=== PATIENT | female | born 1930 | race Caucasian/White ===

== ENCOUNTER → 2016-08-28 | Outpatient (CLI) | payer OTHER, MEDICAID ==
[2016-08-28 08:46] LABS: CREATININE 0.99 mg/dL (0.55-1.02)
--- NOTE | 2016-08-28 10:21 | CT ---
HISTORY: Left rib pain Study: CT chest without contrast Comparison: None Technique: Axial non contrast images with coronal and sagittal reformats. Dose reduction procedures were used with MA/kv adjusted for body size. Findings: Examination of the mediastinum demonstrated no definite evidence for mediastinal masses, enlarged ly mphadenopathy, or enlarged hilar adenopathy. No pleural effusions are identified. No chest wall or a xillary abnormality is identified with the exception of bilateral calcified pleural plaques suggesti ng the possibility of prior asbestos exposure. Those portions of the upper abdominal organs visualiz ed were within normal limits to the limitations of an unenhanced examination with the exception of f atty infiltration of the liver. The ribs are intact demonstrating no fracture, lytic, or blastic les ion. Examination of the lung loyola demonstrated no significant nodules, alveolar infiltrate, area o f consolidation, masses, peribronchial thickening, or bronchiectasis. Minimal subsegmental atelectas is is present in the lung bases. IMPRESSION: Lungs clear Bilateral small calcified pleural plaques suggestive of the possibility of prior asbestos exposure Fatty infiltration of the liver Intact ribs Reported By:
== END ==
LOC: RAD 08:16
PROVIDERS: ATTEND Internal Medicine
DX: R93.8 Abnormal findings on diagnostic imaging of other specified body structures (principal)
CPT/HCPCS: 36415; 71250; 82565; 84520

== ENCOUNTER 2016-09-30 15:49 | Emergency (ER) | payer OTHER, MEDICAID ==
[2016-09-30 15:55] VITALS: BMI 27.6
[2016-09-30] MEDS ORDERED: CATAPRES TAB 0.1 MG PO ONE (16:32)
[2016-09-30] MEDS ORDERED: CATAPRES TAB 0.1 MG ONE (16:32)
--- NOTE | 2016-09-30 16:32 | DR.GENAD ---
HPI - PCP Primary Care Physician: soheila - HPI Comment HPI Comment: RECENTLY BP ALTAF BUT MUCH HIGHER TODAY. SLIGHT HEADACHE AND DIZZINESS. POPPED LEFT KNEE 5 DAYS AGO AND CONTINUES TO HURT. LEGS ARE HURTING ESPECIALLY IN THE CALF AREA FOR FEW DAYS NOW. SHE IS CONCERN IF SHE HAS DVT. DENIES SOB BUT HAVE SLIGHT CHEST DISCOMFORT. NO FEVER. - Complaint/Symptoms Chief Complaint Doctors Comments: ELEVATED BLOOD PRESSURE NOTED RECENTLY BUT WORSE TODAY. LOWER EXTREMITY PAIN.LEFT KNEE POPPED 5 DAYS AGO AND HURTS. Chief Complaint:: patient stated her blood pressure has been high all day, she also stated her left knee poped 5 days ago and her and has been hurting. - Nurses notes reviewed Nurses Notes Review: Yes - Source History Provided: Patient - Mode of Arrival Mode of Arrival: Ambulatory - Timing Onset of Chief Complaint: 09/25/16 Came on: Suddenly - Duration Duration: Constant Duration: Days - Severity Severity: Moderate PMH - PMH Past Medical History: No Past Surgical History: No - Family History History of Family Medical Conditions: No - Social History Does patient currently use any type of tobacco product: No Have you used tobacco products in the last 12 months: No Type of Tobacco Use: None Does any household member use tobacco: No Alcohol Use: None Do you use any recreational Drugs:: No Lives With: Family Lives Where: Home - infectious screening In the last 2 months have you had wt loss of >10#?: NO Have you had fever, night sweats or hemotysis?: No Have you traveled outside the country in the last 6 months?: No Isolation: Standard ROS - Review of Systems Constitutional: No Symptoms Reported. negative: Chills, Fever Eyes: No Symptoms Reported. negative: Eye Pain, Discharge ENTM: No Symptoms Reported. negative: Ear Pain, Nose Discharge, Nose Congestion , Throat Pain Respiratoy: negative: Productive Cough, Non-Productive Cough, Short of Breath, Wheezing, Hemoptysis Cardiovascular: Chest Pain, Other. negative: Edema Gastrointestinal/Abdominal: No Symptoms Reported. negative: Nausea, Vomiting Genitourinary: No Symptoms Reported. negative: Dysuria, Frequency, Hematuria Neurological: Headache, Dizziness Musculoskeletal: Muscle Pain, Right, Left, Leg, Knee Integumentary: No Symptoms Reported Hematologic/Lymphatic: Easy Bruising Endocrine: No Symptoms Reported All Other Systems: Reviewed and Negative PE - Vital Signs Vitals: Temperature 98.6 F Pulse Rate [Left Brachial] 53 Pulse Rate 66 Respiratory Rate 16 Blood Pressure [Left Arm] 120/68 Blood Pressure 209/100 O2 Sat by Pulse Oximetry 99 - General Limitations: No Limitations General Appearance: Alert - Head Head Exam: Normal Inspection - Eyes Eye exam: Normal Appearance - ENT ENT Exam: Normal External Ear Exam External Ear Exam: Normal External Inspection TM/Canal Exam: Bilateral Normal Mouth Exam: Normal Inspection Throat Exam: Normal Inspection - Neck Neck Exam: Trachea Midline - Chest Chest Inspection: Symmetric Chest Wall Rise - Respiratory Respiratory Exam: Normal Lung Sounds Bilat Respiratory Exam: Bilateral Clear to Auscultation - Cardiovascular Cardiovascular Exam: Normal Rhythm, Bradycardia, Normal Heart Sounds - Abdominal Exam Abdominal Exam: Normal Bowel Sounds, Soft. negative: Tenderness - Extremities Extremities Exam: Full ROM, Tenderness (SLIGHT DISCOMFORT ON PALPATION), Calf Tenderness. negative: Edema, Joint Swelling - Back Back Exam: Other (SLIGHT TENSE MUSCLES LEG.) - Neurologic Neurological Exam: Alert, Oriented X3 - Psychiatric Psychiatric Exam: Normal Affect, Normal Mood - Skin Skin Exam: Normal Color MDM - Additional Information Additional Information Obtained From: Family - Differential Diagnosis Differential Diagnosis: LOWER EXTREMITY PAIN, MUSCLE SPASM, DVT, ELECTROLYTE IMBALANCE. Course - Treatment Treatment: SEE ORDERS. - Education/Counseling Education/Counseling: Patient, Family, Education Educated On: Diagnosis, Needs for Follow Up ROR - Labs Reviewed Laboratory Results Reviewed?: Yes Result Diagrams: 09/30/16 16:41 09/30/16 16:41 Laboratory: WBC 8.3 X10^3/uL (3.6-10.0) 09/30/16 16:41 RBC 4.89 X10^6/uL (3.5-5.4) 09/30/16 16:41 Hgb 14.7 g/dL (12.0-16.0) 09/30/16 16:41 Hct 42.6 % (36.0-47.0) 09/30/16 16:41 MCV 87.1 fL (80.0-100.0) 09/30/16 16:41 MCH 30.1 pg (27.0-34.0) 09/30/16 16:41 MCHC 34.5 g/dL (33.0-35.0) 09/30/16 16:41 RDW 14.0 % (11.6-16.5) 09/30/16 16:41 Plt Count 234 X10^3/uL (150.0-450.0) 09/30/16 16:41 MPV 8.3 fL (7.4-11.0) 09/30/16 16:41 Neut % 51.7 % (42.0-75.0) 09/30/16 16:41 Lymph % 38.2 % (21.0-51.0) 09/30/16 16:41 [place] % 7.3 % (0.0-13.0) 09/30/16 16:41 Eos % 2.0 % (0.9-2.9) 09/30/16 16:41 Baso % 0.8 % (0.2-1.0) 09/30/16 16:41 Neut # 4.3 x10^3/uL (2.2-4.8) 09/30/16 16:41 Lymph # 3.2 X10^3/uL (1.3-2.9) H 09/30/16 16:41 [place] # 0.6 x10^3/uL (0.3-0.8) 09/30/16 16:41 Eos # 0.2 x10^3/uL (0.0-0.2) 09/30/16 16:41 Baso # 0.1 X10^3/uL (0.0-0.1) 09/30/16 16:41 Absolute Nucleated RBC 0.1 /100WBC 09/30/16 16:41 D-Dimer 415 ng/mL (0-400) H* 09/30/16 16:41 Sodium 142 mmol/L (136-145) 09/30/16 16:41 Corrected Sodium TNP 09/30/16 16:41 Potassium 4.1 mmol/L (3.5-5.1) 09/30/16 16:41 Chloride 104 mmol/L (98-107) 09/30/16 16:41 Carbon Dioxide 27.3 mmol/L (21-32) 09/30/16 16:41 BUN 12 mg/dL (7-18) 09/30/16 16:41 Creatinine 0.89 mg/dL (0.55-1.02) 09/30/16 16:41 Est GFR (MDRD) Af Amer > 60 (>60) 09/30/16 16:41 Est GFR (MDRD) Non-Af > 60 (>60) 09/30/16 16:41 Glucose 91 mg/dL (65-99) 09/30/16 16:41 Calcium 9.2 mg/dL (8.5-10.1) 09/30/16 16:41 Corrected Calcium TNP 09/30/16 16:41 Total Bilirubin 0.40 mg/dL (0.2-1.0) 09/30/16 16:41 AST 23 Units/L (15-37) 09/30/16 16:41 ALT 28 Units/L (12-78) 09/30/16 16:41 Alkaline Phosphatase 81 Units/L (46-116) 09/30/16 16:41 Creatine Kinase 104 Units/L (26-192) 09/30/16 16:41 CK-MB (CK-2) 2.0 ng/mL (0-4.0) 09/30/16 16:41 CK/CKMB % Calc 1.9 % (<4) 09/30/16 16:41 Troponin I < 0.02 ng/mL (0-1.5) 09/30/16 16:41 Total Protein 7.6 g/dL (6.4-8.2) 09/30/16 16:41 Albumin 3.9 g/dL (3.4-5.0) 09/30/16 16:41 Globulin 3.7 g/dL (2.5-4.5) 09/30/16 16:41 Albumin/Globulin Ratio 1.1 Ratio (1.1-2.1) 09/30/16 16:41 - XRAY XRAY Interpreted by: Radiologist XRAY Findings: REPORT DISCUSS WITH PATIENT AND HER SON. - EKG Rhythm: SB (EKG NOTED.) - Diagnosis Discharge Problem: Hypertension, Leg pain - Discharge Plan Disposition: 01 HOME, SELF-CARE Condition: Stable Prescriptions: Clonidine HCl 0.1 mg PO DAILY #30 tablet Ibuprofen [MOTRIN TAB 600 MG *] 600 mg PO BID PRN #14 tab PRN Reason: Pain/Inflammation - Follow ups/Referrals Follow ups/Referrals: Armin Christensen [Primary Care Provider] - 2 days - Instructions Instructions: Hypertension, Leg Cramps, Knee Sprain, [id number] Additional Instructions: RETURN TO ED IF WORSE.
[2016-09-30 16:56] LABS: BASOPHILS # (AUTO) 0.1 X10^3/uL (0.0-0.1); BASOPHILS % (AUTO) 0.8 % (0.2-1.0); EOSINOPHILS # (AUTO) 0.2 x10^3/uL (0.0-0.2); HEMATOCRIT 42.6 % (36.0-47.0); HEMOGLOBIN 14.7 g/dL (12.0-16.0); LYMPHOCYTES # (AUTO) 3.2 X10^3/uL (1.3-2.9); LYMPHOCYTES % (AUTO) 38.2 % (21.0-51.0); MEAN CORPUSCULAR HEMOGLOBIN 30.1 pg (27.0-34.0); MEAN CORPUSCULAR HGB CONC 34.5 g/dL (33.0-35.0); MEAN CORPUSCULAR VOLUME 87.1 fL (80.0-100.0); MEAN PLATELET VOLUME 8.3 fL (7.4-11.0); MONOCYTES # (AUTO) 0.6 x10^3/uL (0.3-0.8); MONOCYTES % (AUTO) 7.3 % (0.0-13.0); NEUTROPHILS # (AUTO) 4.3 x10^3/uL (2.2-4.8); NEUTROPHILS % (AUTO) 51.7 % (42.0-75.0); PLATELET COUNT 234 X10^3/uL (150.0-450.0); RED BLOOD COUNT 4.89 X10^6/uL (3.5-5.4); WHITE BLOOD COUNT 8.3 X10^3/uL (3.6-10.0)
--- NOTE | 2016-09-30 17:14 | RAD ---
HISTORY: Chest pain. Study: Portable chest. Comparison: Chest x-ray dated March 10, 2013. Findings: The trachea is midline. The cardiac silhouette is unchanged. Question of bronchiectasis within the right lower lobe. The lungs are clear without focal infiltrate or effusion. The bony thorax is unr emarkable. IMPRESSION: 1. No acute cardiopulmonary disease. Reported By:
[2016-09-30 17:23] LABS: D DIMER 415 ng/mL (0-400)
[2016-09-30 17:55] VITALS: BP 120/68
[2016-09-30 18:36] LABS: ALANINE AMINOTRANSFERASE 28 Units/L (12-78); ALBUMIN 3.9 g/dL (3.4-5.0); ALKALINE PHOSPHATASE 81 Units/L (46-116); ASPARTATE AMINO TRANSFERASE 23 Units/L (15-37); BLOOD UREA NITROGEN 12 mg/dL (7-18); CALCIUM 9.2 mg/dL (8.5-10.1); CARBON DIOXIDE 27.3 mmol/L (21-32); CHLORIDE 104 mmol/L (98-107); CKMB % 1.9 % (<4); CREATINE KINASE 104 Units/L (26-192); CREATININE 0.89 mg/dL (0.55-1.02); GLUCOSE 91 mg/dL (65-99); SODIUM 142 mmol/L (136-145); TOTAL PROTEIN 7.6 g/dL (6.4-8.2); TROPONIN I < 0.02 ng/mL (0-1.5); eGFR BLACK RACES > 60 (>60); eGFR NON BLACK RACES > 60 (>60)
--- NOTE | 2016-09-30 18:56 | VAS ---
HISTORY: Bilateral lower extremity pain Study: Bilateral lower extremity venous Doppler Comparison: None TECHNIQUE: Multiple jamil scale and color flow Doppler images of the deep venous system were obtaine d of the right and left lower extremity. FINDINGS: The deep venous system of the right and left lower extremities were evaluated from the level of the common femoral vein through the popliteal vein. Normal color flow and augmentation can be observed. In addition, normal compression is seen throughout the deep venous system. IMPRESSION: 1. Negative for DVT. Reported By:
== END 2016-09-30 19:34 | disposition home or self-care (01) ==
LOC: ER 16:04
DX: I10 Essential (primary) hypertension (principal); M79.605 Pain in left leg
CPT/HCPCS: 36415; 71010; 80053; 82550; 82553; 84484; 85025; 85378; 93005; 93010; 93970; 99283

== ENCOUNTER 2018-09-29 20:01 | Observation (INO) ==
[2018-09-29 20:28] VITALS: BMI 24.7
--- NOTE | 2018-09-29 22:02 | DR.NAUSEAF ---
HPI Time Seen Time Seen by Provider: 09/29/18 21:55 Primary Care Physician Primary Care Physician: DR. HYATT HPI Comment HPI Comment: PATIENT IS 88YR OLD WHITE FEMALE IN ED WITH FAMILY COMPLAINING OF SEVERE HEADACHE, NAUSEA, VOMITING AND DIARRHEA SINCE 14:00PM TODAY. SHE DOES NOT FEEL NORMAL. SHE IS WEAK. HEADACHE IS DIFFUSE Complaints Chief Complaint Doctors Comments: SEVEREHEADACHE WITH NAUSEA AND VOMITING SINCE THIS AFTERNOON ALONG WITH DIARRHEA. RUNNING FEVER. Chief Complaint:: PATIENT STATES SHE HAS NO IDEA WHAT IS GOING ON BUT SHE JUST GOT SICK. STATES SHE HAS HAD A HIGH FEVER BUT DOESN'T KNOW WHAT IT WAS BECAUSE SHE DIDN'T CHECK IT. STATES SHE HAS NAUSEA, VOMITING, AND DIARRHEA SINCE AROUND 2 PM TODAY. Reviewed Nurses Notes Reviewed: Yes Source History Provided: Patient Mode of Arrival Mode of Arrival: Ambulatory Timing Onset of Chief Complaint: 09/29/18 PMH PMH Past Medical History: Yes Past Medical History: Hypertension Past Medical History Comment: BLADDER CANCER Past Surgical History: No Family History History of Family Medical Conditions: No Social History Does any household member use tobacco: No Alcohol Use: None Do you use any recreational Drugs:: No Lives With: Family Lives Where: Home infectious screening In the last 2 months have you had wt loss of >10#?: NO Have you had fever, night sweats or hemotysis?: No Have you traveled outside the country in the last 6 months?: No Isolation: Standard ROS Review of Systems Constitutional: See HPI, Fever, Weakness and Fatigue; negative Chills Eyes: See HPI; negative Eye Pain, Blurred Vision, Photophobia and Diplopia ENTM: See HPI; negative No Symptoms Reported, Ear Pain, Nose Discharge, Nose Congestion and Throat Pain Respiratoy: See HPI; negative No Symptoms Reported, Productive Cough, Short of Breath and Wheezing Cardiovascular: No Symptoms Reported and See HPI; negative Chest Pain, Edema, Palpitations and Syncope Gastrointestinal/Abdominal: See HPI, Diarrhea, Nausea and Vomiting; negative Abdominal Pain and Constipation Genitourinary: No Symptoms Reported and See HPI; negative Dysuria, Frequency and Hematuria Neurological: See HPI, Headache, Weakness and Dizziness Musculoskeletal: See HPI, Back Pain and Muscle Pain; negative Neck Pain Integumentary: No Symptoms Reported and See HPI; negative Change in Color, Rash and Bruises Hematologic/Lymphatic: No Symptoms Reported and See HPI; negative Easy Bleeding, Easy Bruising, Swollen Glands and Lymphadenopathy Endocrine: No Symptoms Reported and See HPI; negative Increased Thirst and Increased Urine Psychiatric: No Symptoms Reported and See HPI PE Vital Signs Vitals: Temperature 98.0 F Pulse Rate [Right Brachial] 53 Pulse Rate 54 Respiratory Rate 19 Blood Pressure [Right Arm] 113/56 Blood Pressure 113/58 O2 Sat by Pulse Oximetry 93 General Limitations: No Limitations General Appearance: Alert and In No Apparent Distress Head Head Exam: Normal Inspection, Atraumatic and Normocephalic Eyes Eye exam: Normal Appearance, PERRL and EOMI; negative Scleral Icterus and Conjunctival Injection ENT ENT Exam: Normal Exam, Normal Oropharynx, Normal External Ear Exam and TM's Normal Bilaterally Neck Neck Exam: Normal Inspection, Full ROM and Trachea Midline; negative Tenderness, Meningismus and Lymphadenopathy Chest Chest Inspection: Normal Inspection and Symmetric Chest Wall Rise; negative Tenderness Respiratory Respiratory Exam: Normal Lung Sounds Bilat and Accessory Muscle Use; negative Chest Wall Tenderness Respiratory Exam: Bilateral: Rhonchi and Lower: Rhonchi Cardiovascular Cardiovascular Exam: Regular Rate, Normal Rhythm, Normal Heart Sounds and Rubs; negative Systolic Murmur, Diastolic Murmur and Gallop Abdominal Exam Abdominal Exam: Normal Inspection, Normal Bowel Sounds and Soft; negative Tenderness Rectal Rectal Exam: Deferred External Exam: Female: Deferred : Speculum Exam (Female): Deferred : Bimanual Exam (female): Deferred Extremities Extremities Exam: Normal Inspection, Full ROM, Normal Capillary Refill and Edema; negative Tenderness and Calf Tenderness Back Back Exam: Normal Inspection; negative Tenderness, (R) CVA Tenderness, (L) CVA Tenderness, Paraspinal Tenderness and Vertebral Tenderness Neurologic Neurological Exam: Alert and Oriented X3; negative CN II-XII Intact and Motor Sensory Deficit Psychiatric Psychiatric Exam: Normal Affect and Normal Mood Skin Skin Exam: Warm, Dry, Intact and Normal Color MDM Additional Information Obtained Additional Information Obtained From: Family Differential Diagnosis Differential Diagnosis: Considerations may Include:: Gastritis, PUD, Urinary Tract Infection and Urolithiasis Differential Diagnosis Comment: CVA, HEADACHE, MASS LESION COURSE Treatment Treatment: SEE ORDERS. Consultation Consultation Comments: DISCUSS PATIENT WITH DR. HYATT. HE WILL ADMIT PATIENT. ADMIT ORDERS DONE. Education/Counseling Education/Counseling: Patient and Family Educated On: Needs for Follow Up ROR Labs Reviewed Laboratory Results Reviewed?: Yes Result Diagrams: 09/29/18 22:08 09/29/18 22:08 Laboratory: WBC 11.9 X10^3/uL (3.6-10.0) H 09/29/18 22:08 RBC 4.77 X10^6/uL (3.5-5.4) 09/29/18 22:08 Hgb 14.7 g/dL (12.0-16.0) 09/29/18 22:08 Hct 43.1 % (36.0-47.0) 09/29/18 22:08 MCV 90.3 fL (80.0-100.0) 09/29/18 22:08 MCH 30.7 pg (27.0-34.0) 09/29/18 22:08 MCHC 34.1 g/dL (33.0-35.0) 09/29/18 22:08 RDW 13.9 % (11.6-16.5) 09/29/18 22:08 Plt Count 256 X10^3/uL (150.0-450.0) 09/29/18 22:08 MPV 8.0 fL (7.4-11.0) 09/29/18 22:08 Neut % (Auto) 84.1 % (42.0-75.0) H 09/29/18 22:08 Lymph % (Auto) 10.9 % (21.0-51.0) L 09/29/18 22:08 [place] % (Auto) 4.7 % (0.0-13.0) 09/29/18 22:08 Eos % (Auto) 0.0 % (0.9-2.9) L 09/29/18 22:08 Baso % (Auto) 0.3 % (0.2-1.0) 09/29/18 22:08 Neut # (Auto) 10.0 x10^3/uL (2.2-4.8) H 09/29/18 22:08 Lymph # (Auto) 1.3 X10^3/uL (1.3-2.9) 09/29/18 22:08 [place] # (Auto) 0.6 x10^3/uL (0.3-0.8) 09/29/18 22:08 Eos # (Auto) 0.0 x10^3/uL (0.0-0.2) 09/29/18 22:08 Baso # (Auto) 0.0 X10^3/uL (0.0-0.1) 09/29/18 22:08 Absolute Nucleated RBC 0.0 /100WBC 09/29/18 22:08 Sodium 134 mmol/L (136-145) L 09/29/18 22:08 Corrected Sodium 136 mmol/L (136-145) 09/29/18 22:08 Potassium 4.0 mmol/L (3.5-5.1) 09/29/18 22:08 Chloride 99 mmol/L (98-107) 09/29/18 22:08 Carbon Dioxide 23.9 mmol/L (21-32) 09/29/18 22:08 BUN 14 mg/dL (7-18) 09/29/18 22:08 Creatinine 0.95 mg/dL (0.55-1.02) 09/29/18 22:08 Est GFR (MDRD) Af Amer > 60 (>60) 09/29/18 22:08 Est GFR (MDRD) Non-Af 59 (>60) 09/29/18 22:08 Glucose 164 mg/dL (65-99) H 09/29/18 22:08 Lactic Acid 1.7 mmol/L (0.4-2.0) 09/29/18 22:08 Calcium 9.9 mg/dL (8.5-10.1) 09/29/18 22:08 Corrected Calcium TNP 09/29/18 22:08 Total Bilirubin 0.40 mg/dL (0.2-1.0) 09/29/18 22:08 AST 22 Units/L (15-37) 09/29/18 22:08 ALT 21 Units/L (12-78) 09/29/18 22:08 Alkaline Phosphatase 84 Units/L (46-116) 09/29/18 22:08 Creatine Kinase 67 Units/L (26-192) 09/30/18 21:18 CK-MB (CK-2) 1.0 ng/mL (0-4.0) 09/30/18 21:18 CK/CKMB % Calc 1.5 % (<4) 09/30/18 21:18 Troponin I < 0.02 ng/mL (0-1.5) 09/30/18 21:18 C-Reactive Protein 2.60 mg/L (0-3.0) 09/29/18 22:08 Total Protein 8.0 g/dL (6.4-8.2) 09/29/18 22:08 Albumin 3.9 g/dL (3.4-5.0) 09/29/18 22:08 Globulin 4.1 g/dL (2.5-4.5) 09/29/18 22:08 Albumin/Globulin Ratio 1.0 Ratio (1.1-2.1) L 09/29/18 22:08 Specimen Type Clean catch urine 09/30/18 00:22 Urine Color Yellow (YELLOW) 09/30/18 00:22 Urine Appearance Clear (CLEAR) 09/30/18 00:22 Urine pH 6.0 (5.0 - 8.0) 09/30/18 00:22 Ur Specific Min[place] 1.015 (1.000-1.030) 09/30/18 00:22 Urine Protein Negative (NEGATIVE) 09/30/18 00:22 Urine Glucose (UA) Negative (NEGATIVE) 09/30/18 00:22 Urine Ketones 1+ (NEGATIVE) 09/30/18 00:22 Urine Occult Blood 4+ (NEGATIVE) 09/30/18 00:22 Urine Nitrite Negative (NEGATIVE) 09/30/18 00:22 Urine Bilirubin Negative (NEGATIVE) 09/30/18 00:22 Urine Urobilinogen Normal (NORMAL) 09/30/18 00:22 Ur Leukocyte Esterase Negative (NEGATIVE) 09/30/18 00:22 Urine RBC 10-20 /HPF (NONE SEEN) 09/30/18 00:22 Urine WBC None seen /HPF (NONE SEEN) 09/30/18 00:22 Ur Squamous Epith Cells Rare /HPF (NEGATIVE) 09/30/18 00:22 Urine Bacteria Negative /HPF (NEGATIVE) 09/30/18 00:22 Ur Culture Indicated? No/not indicated 09/30/18 00:22 XRAY XRAY Interpreted by: Radiologist XRAY Findings: REPORT ON RECORD NOTED AND DISCUSS WITH PATIENT AND HER FAMILY. Opioid Opioid Risk Tool Total: 0 Total Score Risk Category: Low Risk Copyright: [facility] predicting aberrant behaviors Diagnosis Discharge Problem: Abnormal CT of brain, Generalized weakness Headache Qualifiers: Headache type: unspecified Headache chronicity pattern: acute headache Intractability: intractable Qualified Code(s): R51 - Headache Instructions Forms: Excuse From Work
[2018-09-29 22:26] LABS: BASOPHILS % (AUTO) 0.3 % (0.2-1.0); HEMATOCRIT 43.1 % (36.0-47.0); HEMOGLOBIN 14.7 g/dL (12.0-16.0); LYMPHOCYTES # (AUTO) 1.3 X10^3/uL (1.3-2.9); LYMPHOCYTES % (AUTO) 10.9 % (21.0-51.0); MEAN CORPUSCULAR HEMOGLOBIN 30.7 pg (27.0-34.0); MEAN CORPUSCULAR HGB CONC 34.1 g/dL (33.0-35.0); MEAN CORPUSCULAR VOLUME 90.3 fL (80.0-100.0); MONOCYTES # (AUTO) 0.6 x10^3/uL (0.3-0.8); MONOCYTES % (AUTO) 4.7 % (0.0-13.0); NEUTROPHILS % (AUTO) 84.1 % (42.0-75.0); PLATELET COUNT 256 X10^3/uL (150.0-450.0); RED BLOOD COUNT 4.77 X10^6/uL (3.5-5.4); RED CELL DISTRIBUTION WIDTH 13.9 % (11.6-16.5); WHITE BLOOD COUNT 11.9 X10^3/uL (3.6-10.0)
[2018-09-29 22:42] LABS: ALANINE AMINOTRANSFERASE 21 Units/L (12-78); ALBUMIN 3.9 g/dL (3.4-5.0); ALKALINE PHOSPHATASE 84 Units/L (46-116); ASPARTATE AMINO TRANSFERASE 22 Units/L (15-37); BLOOD UREA NITROGEN 14 mg/dL (7-18); CALCIUM 9.9 mg/dL (8.5-10.1); CARBON DIOXIDE 23.9 mmol/L (21-32); CHLORIDE 99 mmol/L (98-107); COR NA(FOR HYPERGLY) 136 mmol/L (136-145); CREATININE 0.95 mg/dL (0.55-1.02); SODIUM 134 mmol/L (136-145); eGFR NON BLACK RACES 59 (>60)
[2018-09-29 22:44] LABS: LACTIC ACID 1.7 mmol/L (0.4-2.0)
--- NOTE | 2018-09-29 23:01 | RAD ---
AP chest. Indication: Fever Findings: The trachea is midline. Heart size is within normal limits given AP technique. Chronic interstitial lung changes without focal airspace opacity, pleural effusion or pneumothorax. There is biapical pleural parenchymal scarring with calcification of the left lung apex. No acute osseous abnormality. Impression: No acute cardiopulmonary abnormality. Reported By:
--- NOTE | 2018-09-30 00:08 | CT ---
CT brain without contrast Indication: Headache Comparison: None available Technique: Multiple axial images of the brain were obtained from the skull base to the vertex without administration of IV contrast. Dose reduction techniques including automated exposure control (AEC) and adjustment of mA and kV were utilized. Findings: Punctate areas of hypoattenuation within the left armando radiata, right anterior limb of the internal capsule and bilateral subinsular cortex and lentiform nuclei represent age-indeterminate infarcts. Moderate generalized cerebral atrophy. Minimal bilateral periventricular hypoattenuation is noted. Area of increased density within the extra-axial space along the inner table of the left frontal calvarium on axial image 17 is indeterminate, this may represent focal calcification versus an atypical appearing meningioma. There is no bony remodeling of the calvarium making a meningioma less likely. No acute intraparenchymal hemorrhage or mass can be identified. No extra-axial fluid collections are seen. No alteration in the attenuation of the brain parenchyma can be identified to suggest acute or subacute ischemic change. The ventricular system is symmetric and nondilated. The extracranial structures are grossly unremarkable. IMPRESSION: No acute intracranial hemorrhage. 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 Reported By:
[2018-09-30 00:54] LABS: BILIRUBIN,URINE NEGATIVE (NEGATIVE); BLOOD/HEMOGLOBIN,URINE 4+ (NEGATIVE); GLUCOSE, URINE NEGATIVE (NEGATIVE); KETONES,URINE 1+ (NEGATIVE); LEUKOCYTE ESTERASE ,URINE NEGATIVE (NEGATIVE); NITRITES,URINE NEGATIVE (NEGATIVE); PROTEIN,URINE NEGATIVE (NEGATIVE); UROBILINOGEN,URINE NORMAL (NORMAL)
[2018-09-30 01:03] LABS: APPEARANCE,URINE CLEAR (CLEAR); COLOR,URINE YELLOW (YELLOW)
[2018-09-30 01:04] LABS: BACTERIA,URINE NEGATIVE /HPF (NEGATIVE); SQUAMOUS EPITHELIAL CELL,UR RARE /HPF (NEGATIVE)
[2018-09-30] MEDS ORDERED: ZOFRAN INJ 4 MG VIAL ONE ×2 (01:30→08:45)
[2018-09-30] MEDS ORDERED: MORPHINE SULFATE INJ 2 MG INJ ONE (01:30)
[2018-09-30] MEDS ORDERED: ZOFRAN INJ 4 MG VIAL IVP ONE ×2 (01:38→08:51)
[2018-09-30] MEDS ORDERED: MORPHINE SULFATE INJ 2 MG INJ IVP ONE (01:38)
[2018-09-30 07:34] LABS: CKMB % 2.6 % (<4); CREATINE KINASE 66 Units/L (26-192); CREATINE KINASE MB 1.7 ng/mL (0-4.0); TROPONIN I < 0.02 ng/mL (0-1.5)
--- NOTE | 2018-09-30 09:53 | MRI ---
STUDY: MRI OF THE BRAIN WITHOUT GADOLINIUM HISTORY: Abnormal brain CT. Headache. Lightheaded. Nausea. Technique: Multiplanar multi-sequence MRI of the brain was obtained utilizing standard departmental protocol. Sagittal and axial T1, axial T2, FLAIR, diffusion (DWI/ADC), GRE, and coronal T2 images through the brain were performed. Comparison: Head CT from September 29, 2017. Findings: The sulci, cisterns and ventricles are prominent consistent with mild diffuse volume loss. There are confluent and scattered foci of T2 prolongation in the periventricular and subcortical white matter of both hemispheres. This is a nonspecific finding which likely represents mild microangiopathic change in a patient of this age. There is no evidence of acute territorial infarction, hemorrhage, mass, mass effect, or midline shift. There are no abnormal intra-axial or extra-axial fluid collections. The major intracranial vascular flow voids appear intact. The left vertebral artery appears dominant. IMPRESSION: 1. No evidence of acute intracranial abnormality. 2. Mild nonspecific white matter change and volume loss. Reported By:
[2018-09-30 15:47] LABS: CKMB % 1.5 % (<4); CREATINE KINASE 66 Units/L (26-192); TROPONIN I < 0.02 ng/mL (0-1.5)
[2018-09-30 21:47] LABS: CKMB % 1.5 % (<4); CREATINE KINASE 67 Units/L (26-192); TROPONIN I < 0.02 ng/mL (0-1.5)
[2018-10-01 05:28] LABS: BASOPHILS % (AUTO) 0.3 % (0.2-1.0); EOSINOPHILS # (AUTO) 0.2 x10^3/uL (0.0-0.2); EOSINOPHILS % (AUTO) 2.6 % (0.9-2.9); HEMATOCRIT 38.9 % (36.0-47.0); LYMPHOCYTES # (AUTO) 3.9 X10^3/uL (1.3-2.9); LYMPHOCYTES % (AUTO) 40.6 % (21.0-51.0); MEAN CORPUSCULAR HEMOGLOBIN 30.1 pg (27.0-34.0); MEAN CORPUSCULAR HGB CONC 33.4 g/dL (33.0-35.0); MEAN CORPUSCULAR VOLUME 90.3 fL (80.0-100.0); MEAN PLATELET VOLUME 8.2 fL (7.4-11.0); MONOCYTES # (AUTO) 0.8 x10^3/uL (0.3-0.8); MONOCYTES % (AUTO) 8.8 % (0.0-13.0); NEUTROPHILS # (AUTO) 4.6 x10^3/uL (2.2-4.8); NEUTROPHILS % (AUTO) 47.7 % (42.0-75.0); PLATELET COUNT 222 X10^3/uL (150.0-450.0); RED BLOOD COUNT 4.31 X10^6/uL (3.5-5.4); RED CELL DISTRIBUTION WIDTH 13.6 % (11.6-16.5); WHITE BLOOD COUNT 9.6 X10^3/uL (3.6-10.0)
[2018-10-01 05:44] LABS: ALANINE AMINOTRANSFERASE 21 Units/L (12-78); ALBUMIN 3.2 g/dL (3.4-5.0); ALKALINE PHOSPHATASE 62 Units/L (46-116); ASPARTATE AMINO TRANSFERASE 15 Units/L (15-37); BLOOD UREA NITROGEN 15 mg/dL (7-18); CALCIUM 8.9 mg/dL (8.5-10.1); CARBON DIOXIDE 29.2 mmol/L (21-32); CHLORIDE 105 mmol/L (98-107); COR CA(FOR HYPOALB) 9.5 mg/dL (8.5-10.1); SODIUM 140 mmol/L (136-145); TOTAL PROTEIN 6.5 g/dL (6.4-8.2); eGFR NON BLACK RACES > 60 (>60)
[2018-10-01] MEDS: ECOTRIN TAB 325 MG PO SCH (09:43)
--- NOTE | 2018-10-01 14:07 | CT ---
CT ABDOMEN AND PELVIS WITH ORAL CONTRAST CLINICAL HISTORY: 88-year-old female with abdominal pain. History of bladder cancer. COMPARISON: CT abdomen and pelvis 12/31/2015. TECHNIQUE: Multiple axial CT images of the abdomen and pelvis were obtained following the administration of oral contrast. No intravenous contrast was administered. The images were reformatted in the sagittal and coronal planes. Dose reduction techniques including Automated Exposure Control (AEC) and adjustment of mA and kV were utilized. FINDINGS: The lung bases are clear without pulmonary nodules, masses, or pleural fluid collections. The inferior imaged heart is normal in size and there is no pericardial effusion. Mild hepatic steatosis without focal mass lesion, biliary ductal dilatation or hepatomegaly. Spleen is unremarkable. Mild fatty replacement of the otherwise unremarkable pancreas. Cholelithiasis without CT evidence of cholecystitis. The adrenal glands and kidneys are normal in appearance for a study without IV contrast. The ureters run in an unobstructed course to a minimally distended urinary bladder. The uterus is anteverted and normal in size. The ovaries, vagina and perineum are within normal limits. Multiple pelvic phleboliths. Oral contrast reaches the distal ileum. The bowel is without obstruction or inflammation and there is no free fluid or free air within the peritoneal cavity. Appendix not visualized, no pericecal inflammatory change. There are no pathologically enlarged lymph nodes in the abdomen or pelvis. Soft tissues are normal. The osseous structures are intact without fracture or malalignment. Degenerative changes of the spine are stable. IMPRESSION: 1. Cholelithiasis without CT evidence of cholecystitis. Consider right upper quadrant ultrasound, correlate with serology. 2. Hepatic steatosis, correlate with serology. 3. No acute intra-abdominal or intrapelvic process otherwise. Reported By:
[2018-10-02 05:23] LABS: BASOPHILS # (AUTO) 0.1 X10^3/uL (0.0-0.1); BASOPHILS % (AUTO) 0.6 % (0.2-1.0); EOSINOPHILS # (AUTO) 0.3 x10^3/uL (0.0-0.2); EOSINOPHILS % (AUTO) 2.9 % (0.9-2.9); HEMATOCRIT 38.2 % (36.0-47.0); LYMPHOCYTES # (AUTO) 3.2 X10^3/uL (1.3-2.9); LYMPHOCYTES % (AUTO) 35.1 % (21.0-51.0); MEAN CORPUSCULAR HEMOGLOBIN 30.6 pg (27.0-34.0); MEAN CORPUSCULAR HGB CONC 34.2 g/dL (33.0-35.0); MEAN CORPUSCULAR VOLUME 89.6 fL (80.0-100.0); MEAN PLATELET VOLUME 8.1 fL (7.4-11.0); MONOCYTES # (AUTO) 0.8 x10^3/uL (0.3-0.8); MONOCYTES % (AUTO) 9.1 % (0.0-13.0); NEUTROPHILS # (AUTO) 4.8 x10^3/uL (2.2-4.8); NEUTROPHILS % (AUTO) 52.3 % (42.0-75.0); PLATELET COUNT 218 X10^3/uL (150.0-450.0); RED BLOOD COUNT 4.26 X10^6/uL (3.5-5.4); RED CELL DISTRIBUTION WIDTH 13.5 % (11.6-16.5); WHITE BLOOD COUNT 9.2 X10^3/uL (3.6-10.0)
[2018-10-02 05:33] LABS: ALANINE AMINOTRANSFERASE 18 Units/L (12-78); ALBUMIN 3.1 g/dL (3.4-5.0); ALKALINE PHOSPHATASE 61 Units/L (46-116); AMYLASE 47 Units/L (25-115); ASPARTATE AMINO TRANSFERASE 11 Units/L (15-37); BLOOD UREA NITROGEN 13 mg/dL (7-18); CARBON DIOXIDE 27.7 mmol/L (21-32); CHLORIDE 107 mmol/L (98-107); CHOL/HDL RATIO 3.1 (0.0-5.0); CHOLESTEROL 146 mg/dL (0-200); COR CA(FOR HYPOALB) 9.7 mg/dL (8.5-10.1); CREATININE 0.74 mg/dL (0.55-1.02); HDL CHOLESTEROL 47 mg/dL (40-60); LIPASE 111 Units/L (73-393); SODIUM 142 mmol/L (136-145); TOTAL PROTEIN 6.4 g/dL (6.4-8.2); TRIGLYCERIDES 107 mg/dL (0-150); eGFR NON BLACK RACES > 60 (>60)
[2018-10-02] MEDS ORDERED: COLACE CAP 100 MG PO SCH ×2 (09:00→21:00)
[2018-10-02] MEDS ORDERED: MILK OF MAGNESIA PO SCH ×2 (09:00)
[2018-10-02] MEDS: ECOTRIN TAB 325 MG PO SCH (09:20)
[2018-10-02] MEDS ORDERED: ELIQUIS PO SCH (10:15)
[2018-10-02] MEDS ORDERED: ZOFRAN INJ 4 MG VIAL IVP PRN (10:35)
[2018-10-02] MEDS ORDERED: NORVASC TAB 2.5 MG ONE (10:44)
[2018-10-02] MEDS ORDERED: NORVASC TAB 2.5 MG PO SCH (11:00)
--- NOTE | 2018-10-02 11:44 | DR.H&P ---
H&P - History & Physical for Day of: H&P Date: 09/30/18 - Chief Complaint Chief Complaint: ABDOMINAL PAIN, N/V, DIARRHEA, WEAKNESS, DIZZINESS, HEADACHE - History of Present Illness History of Present Illness: IS A 88 YEAR OLD PATIENT OF OURS. SHE PRESENTED TO THE ER WITH COMPLAINTS OF FEVER, ABDOMINAL PAIN, NAUSEA/VOMITING, AND DIARRHEA. SYMPTOMS REPORTEDLY STARTED EARLIER IN THE DAY. SHE ALSO REPORTS SEVERE HEADACHE, WEAKNESS, AND DIZZINESS AT TIMES. ON ARRIVAL, VITALS WERE: 98.7-103-20-97%-127/67. LABS WERE OBTAINED. ABNORMAL LAB VALUES INCLUDED THE FOLLOWING: WBC 11.9, SODIUM 134, GLUCOSE 164. URINALYSIS REVEALED WBC NONE SEEN, RBC 10-20, OCCULT BLOOD 4+. BLOOD CULTURES WERE OBTAINED. A CHEST XRAY WAS OBTAINED AND REVEALED: No acute cardiopulmonary abnormality. A BRAIN CT WAS OBTAINED AND REVEALED: No acute intracranial hemorrhage. 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 BRAIN MRI REVEALED: No evidence of acute intracranial abnormality. Mild nonspecific white matter change and volume loss. EKG REVEALED: SINUS RHYTHM WITH HR 57. SHE WAS ADMITTED TO THE HOSPITAL DUE TO GENERALIZED WEAKNESS, HEADACHE, AND AN ABNORMAL BRAIN CT. WE PLAN TO FOLLOW UP WITH AM LABS AND CONTINUE TO MONITOR. - Past Medical History Past Medical History: Hypertension - Past Surgical History Surgical History: Tonsillectomy - Family History Family Medical History: Cancer, Coronary Artery Disease - Social History Does patient currently use any type of tobacco product: No Have you used tobacco products in the last 12 months: No Type of Tobacco Use: None Does any household member use tobacco: No Alcohol Use: None Prescription drug monitoring program results: PDMP reviewed and no concerns identified - Medications Home Medications: Iodine and Iodide Containing Produc Allergy (Verified 09/30/18 01:38) CONTINUE taking the following medications clonidine HCl 0.1 mg PO PRN PRN 09/30/18 [History] New Prescriptions amlodipine 2.5 mg PO QDAY #30 tab 10/02/18 [Rx] apixaban [Eliquis] 2.5 mg PO BID #60 tab 10/02/18 [Rx] aspirin [Ecotrin Low Strength] 81 mg PO QDAY #30 tab 10/02/18 [Rx] rosuvastatin 10 mg PO QDAY #30 tab 10/02/18 [Rx] - Review of Systems Constitutional: Fever, Chills, Weakness Eyes: No Symptoms Reported ENT: No Symptoms Reported Respiratory: No Symptoms Reported Cardiovascular: See HPI, Light Headedness Gastrointestinal: See HPI, Nausea, Vomiting, Abdominal Pain, Diarrhea Genitourinary: No Symptoms Reported Musculoskeletal: No Symptoms Reported Skin: No Symptoms Reported Neurological: See HPI, Weakness, Other (HEADACHE ) - Physical Exam Vital Signs: Temperature 97.8 F Pulse Rate [Right Brachial] 53 Pulse Rate 53 Respiratory Rate 23 Blood Pressure [Right Arm] 113/56 Blood Pressure 167/74 O2 Sat by Pulse Oximetry 99 Oriented: Normal Eyes: Normal Ear: Normal Nose: Normal Throat: Normal Respiratory: Diminished Throughout Cardiovascular: Tachycardia. negative: S3, S4, Murmur : Normal Auscultation: Bowel Sounds: Normal Tenderness: Diffuse, Mild. negative: Rebound, Guarding, Rigidity Skin: Normal Musculoskeletal: Normal Psychiatric: Normal Mood Description: Calm Affect: Normal Speech Pattern: Clear - Assessment/Plan (1) Abnormal CT of brain Status: Acute Plan: ADMIT TO ICU, ASSISTANT PROSECUTING ATTORNEY, CONTINUE TO MONITOR (2) Headache Qualifiers: Headache type: unspecified Headache chronicity pattern: acute headache Intractability: intractable Qualified Code(s): R51 - Headache Status: Acute (3) Generalized weakness Status: Acute - Allergies Allergies/Adverse Reactions: Allergies Allergy/AdvReac Type Severity Reaction Status Date / Time Iodine and Iodide Containing Allergy Verified 09/30/18 01:38 Produc
[2018-10-02 14:20] VITALS: BP 157/69
== END 2018-10-02 14:10 | disposition home or self-care (01) ==
LOC: ICU 20:01 → ER 20:01 → ICU 09-30 11:07
PROVIDERS: ADMIT Internal Medicine; ATTEND Internal Medicine
DX: R53.1 Weakness; R90.82 White matter disease, unspecified; R90.89 Other abnormal findings on diagnostic imaging of central nervous system; Z86.73 Personal history of transient ischemic attack (TIA), and cerebral infarction without residual deficits; R51 Headache; R42 Dizziness and giddiness; R94.31 Abnormal electrocardiogram [ECG] [EKG]; R11.2 Nausea with vomiting, unspecified; R10.84 Generalized abdominal pain; I10 Essential (primary) hypertension; R19.7 Diarrhea, unspecified
CPT/HCPCS: 36415; 70450; 70551; 71010; 71045; 74176; 80053; 80061; 81001; 82150; 82550; 82553; 83605; 83690; 84484; 85025; 86140; 87040; 93005; 96365; 96374; 96375; 99284; A4222; G0378; J2270; J2405